=== PATIENT | female | born 1960 | race Caucasian/White ===

== ENCOUNTER 2019-07-23 07:20 | Day surgery (SDC) ==
--- NOTE | 2019-07-17 08:20 | EKG Report ---
Test Performed on : 07/17/2019 08:13:12 AM Test Reason : PAT Blood Pressure : / mmHG Vent. Rate : 073 BPM Atrial Rate : 073 BPM P-R Int : 158 ms QRS Dur : 090 ms QT Int : 382 ms P-R-T Axes : 065 064 080 degrees QTc Int : 420 ms Normal sinus rhythm. Normal ECG When compared with ECG of 27-AUG-2018 09:04, Left posterior fascicular block is no longer present Nonspecific T wave abnormality, worse in Lateral leads Unconfirmed Result
[2019-07-17 08:40] LABS: URINE SOURCE CLEAN CATCH
[2019-07-17 08:48] LABS: BASO# 0.02 X1000 (0.0-0.2); BASO% 0.4 % (0.0-0.8); EOS# 0.13 X1000 (0.0-0.7); EOS% 2.4 % (0.0-10.0); HEMATOCRIT 34.4 % (37.0-47.0); HEMOGLOBIN 10.4 g/dL (12.0-16.0); IMM GRAN# 0.02 X1000 (0.0-0.04); IMM GRAN% 0.4 % (0.0-0.5); LYMPH# 1.89 X1000 (1.2-3.4); LYMPH% 34.5 % (20.5-51.1); MCH 29.6 PG (27-31); MCHC 30.2 g/dL (33-37); MONO# 0.71 X1000 (0.11-0.59); MPV 9.7 FL (7.4-10.4); NEUT# 2.71 X1000 (1.4-6.5); NEUT% 49.3 % (42.2-75.2); PLT 329 X1000 (130-400); RBC 3.51 XMIL (4.2-5.4); RDW 13.2 % (11.5-14.5); WBC 5.48 X1000 (4.8-10.8)
[2019-07-17 08:49] LABS: BILIRUBIN URINE NEGATIVE (NEGATIVE); BLOOD URINE NEGATIVE (NEGATIVE); COLOR YELLOW; GLUCOSE URINE NEGATIVE (NEGATIVE); KETONE URINE NEGATIVE (NEGATIVE); LEUKOCYTES URINE SMALL (NEGATIVE); NITRITE URINE NEGATIVE (NEGATIVE); PH URINE 5.5; PROTEIN URINE NEGATIVE (NEGATIVE); SP GRAVITY URINE 1.019; TURBIDITY URINE CLEAR (CLEAR); UR EPITHELIAL CELLS <10 /HPF (<10); URINE BACTERIA 4+ /HPF; URINE RBC <10 /HPF (<10); UROBILINOGEN URINE NORMAL (NORMAL)
[2019-07-17 08:58] LABS: HEMOGLOBIN A1C 5.2 % (4.8-6.0)
[2019-07-17 08:59] LABS: INR 0.97
[2019-07-17 09:00] LABS: PTT 27.4 Seconds (22.3-41.8)
[2019-07-17 09:12] LABS: AGAP 7; BUN 26 mg/dL (8-22); CALCIUM 8.9 mg/dL (8.8-10.2); CHLORIDE 101 mmol/L (98-107); COSMO 277; CREATININE 0.8 mg/dL (0.5-0.9); ESTIMATED GFR > 60; GLUCOSE 111 mg/dL (70-104); POTASSIUM 4.4 mmol/L (3.5-5.1); SODIUM 136 mmol/L (136-145); TCO2 28 mmol/L (25-35)
[2019-07-23] MEDS: LR 1,000 ML ONE ×2 (07:45→08:00)
[2019-07-23] MEDS ORDERED: VERSED ONE (07:55)
[2019-07-23] MEDS ORDERED: FENTANYL ONE (07:55)
[2019-07-23] MEDS ORDERED: XYLOCAINE-MPF 2% ONE (07:56)
[2019-07-23] MEDS ORDERED: ZOFRAN ONE (07:56)
[2019-07-23] MEDS ORDERED: DECADRON ONE ×2 (07:56)
[2019-07-23] MEDS ORDERED: ROBINUL ONE (07:56)
[2019-07-23] MEDS ORDERED: DIPRIVAN 1% ONE ×2 (07:56→08:08)
[2019-07-23] MEDS ORDERED: OFIRMEV 1000 MG/ISOTONIC SOLN 1,000 MG/100 ML BOTTLE ONE (07:57)
[2019-07-23] MEDS ORDERED: COLACE ONE (07:58)
[2019-07-23] MEDS ORDERED: CELEBREX ONE (07:58)
[2019-07-23] MEDS ORDERED: REGLAN ONE (07:58)
[2019-07-23] MEDS ORDERED: LYRICA ONE (07:58)
[2019-07-23] MEDS ORDERED: PEPCID ONE (07:58)
[2019-07-23] MEDS ORDERED: KEFZOL 1 GM/D5W 2 GM/100 ML IVPB ONE (07:59)
[2019-07-23] MEDS ORDERED: DURAMORPH ONE (08:00)
[2019-07-23] MEDS ORDERED: VANCOMYCIN ONE (08:00)
[2019-07-23] MEDS ORDERED: MARCAINE 0.25% PF ONE (08:00)
[2019-07-23] MEDS ORDERED: TORADOL ONE (08:00)
[2019-07-23] MEDS ORDERED: SODIUM CHLORIDE 0.9% ONE (08:01)
[2019-07-23] MEDS ORDERED: EXPAREL 1.3% ONE (08:01)
[2019-07-23] MEDS ORDERED: VALIUM ONE (08:33)
[2019-07-23] MEDS ORDERED: KETAMINE ONE (08:36)
[2019-07-23] MEDS ORDERED: MARCAINE 0.5% PF ONE (08:48)
[2019-07-23] MEDS: CYKLOKAPRON 1,000 MG/NS 2,000 MG/200 ML IVPB ONE ×2 (09:05→09:50)
[2019-07-23] MEDS ORDERED: DILAUDID ONE (09:58)
[2019-07-23 10:49] LABS: URINE SOURCE CATH
[2019-07-23] MEDS ORDERED: NS 1,000 ML ONE (10:49)
--- NOTE | 2019-07-23 11:02 | Diag Imaging Result Doc PS360 ---
EXAM: KNEE 1-2 VIEWS-RIGHT 07/23/2019 HISTORY: Right total Knee TECHNIQUE: Portable two views COMMENT: There is a total knee arthroplasty. There is no evidence of acute bony abnormality. IMPRESSION: Postsurgical changes. Electronically signed by Scot Acevedo 07/23/2019 10:59 AM
[2019-07-23 11:03] LABS: BILIRUBIN URINE NEGATIVE (NEGATIVE); BLOOD URINE NEGATIVE (NEGATIVE); COLOR YELLOW; GLUCOSE URINE NEGATIVE (NEGATIVE); KETONE URINE NEGATIVE (NEGATIVE); LEUKOCYTES URINE NEGATIVE (NEGATIVE); NITRITE URINE NEGATIVE (NEGATIVE); PROTEIN URINE NEGATIVE (NEGATIVE); SP GRAVITY URINE 1.016; TURBIDITY URINE CLEAR (CLEAR); UROBILINOGEN URINE NORMAL (NORMAL)
[2019-07-23 11:04] LABS: UR EPITHELIAL CELLS <10 /HPF (<10); URINE BACTERIA NEGATIVE /HPF; URINE RBC <10 /HPF (<10); URINE WBC <10 /HPF (<10)
[2019-07-23] MEDS ORDERED: MORPHINE IV PRN ×3 (11:15)
[2019-07-23] MEDS ORDERED: NS 1,000 ML IV SCH (11:15)
[2019-07-23] MEDS ORDERED: ZOFRAN IV PRN (11:15)
[2019-07-23] MEDS ORDERED: ZOFRAN ODT PO PRN (11:15)
[2019-07-23] MEDS: ULTRAM PO SCH ×2 (11:31→17:03)
[2019-07-23] MEDS: TYLENOL PO SCH ×2 (11:31→17:03)
--- NOTE | 2019-07-23 11:32 | OPERATIVE NOTE ---
PROCEDURE DATE: 07/23/2019 PREOPERATIVE DIAGNOSIS: Degenerative joint disease, right knee. POSTOPERATIVE DIAGNOSIS: Degenerative joint disease, right knee. PROCEDURE PERFORMED: Right total knee replacement. SURGEON: Jm Parra MD. SPLICING TECHNICIAN: MARILIN Natarajan. Mr. Paz was necessary for proper retraction, manipulation, and exposure of the case. ANESTHESIA: Spinal. COMPLICATIONS: None. PROCEDURE IN DETAIL: This 59-year-old female presents for right knee replacement. Risks, benefits, and no guarantees were discussed, and she is willing to proceed. She was taken to the operating room and satisfactory anesthesia obtained. The right leg was prepped and draped in the usual sterile fashion. A time-out was taken to confirm operative site, procedure, and patient. The leg was then wrapped with an Esmarch and tourniquet inflated to 300 mmHg. A midline incision was made over the front of the knee, followed by a quad tendon sparing arthrotomy. The patella was everted and resurfaced with freehand technique and subluxed laterally. With the knee flexed, an intramedullary hole was made in the distal femur and intramedullary guide secured in 5 degrees of valgus. Distal femoral resection was made at 10 mm off the end and the femur sized to a [employer] size 5 femoral implant. The four-in-one finishing block was secured, and the anterior, posterior, and chamfer cuts sequentially made. Any osteophytes were debrided about the femur. The knee was flexed and a PCL retractor placed behind the tibia to protect the PCL and neurovascular bundle. The tibial cutting block was secured and the tibial resection made. The flexion-extension gap was slightly tight. An additional 2 mm was taken off the tibia with good soft tissue balance with a 5 mm spacer block. The tibia was sized to a size 5 tibial tray. Trial reduction was performed with a size 5 tibial tray, a size 5 femoral component, and a 5 mm thick CR retaining rotating platform polyethylene trial. Good range of motion and stability were noted. Any osteophytes were debrided about the tibia and femur. The patella was sized to a 35 medialized dome patella. The drill holes were placed for the patella and femoral implants, and the trial components removed. The bony surfaces were thoroughly irrigated with pulsatile lavage. Cement with a gram of vancomycin was utilized to cement a size 5 rotating platform tibial tray, a size 5 right narrow cruciate retaining femoral component, and a 35 medialized dome patella. While the cement cured, the joint capsules injected with Exparel for pain management and a Hemovac drain placed. After curing the cement, a size 5 rotating platform CR poly was inserted in the tibial tray and the knee reduced. Final range of motion was 0 to 130 degrees with midline patellar tracking. The arthrotomy was copiously irrigated and closed over the drain with #1 Vicryl in the arthrotomy, 2-0 Vicryl in the subcutaneous, and skin angela on the skin edges. Sterile dressings completed the closure. The patient was recovered from anesthesia and transferred to the recovery room in stable condition. No intraoperative complications were noted. Instrument count and sponge count were correct at the time of closure. cc: Jm Parra MD
[2019-07-23] MEDS: BUSPAR PO SCH ×3 (16:24→21:48)
[2019-07-23] MEDS: ZYPREXA PO SCH ×3 (16:24→21:54)
[2019-07-23] MEDS: REMERON PO SCH ×3 (16:25→21:46)
[2019-07-23] MEDS: ROBAXIN PO SCH ×3 (16:25→21:46)
[2019-07-23] MEDS: KEFZOL 2 GM/D5W 2 GM/50 ML IVPB IV SCH (17:02)
[2019-07-23] MEDS: OXY IR PO PRN ×2 (18:10→21:50)
--- NOTE | 2019-07-23 20:11 | ORTHOPAEDICS PROGRESS NOTE ---
DATE: 07/23/2019 SUBJECTIVE: Ms. Humphrey is seen status post total knee replacement. At the present time, she is afebrile with stable vital signs. Her bandage is clean and dry. She appears to be motor and sensory intact. She is comfortable the present time. We will plan on discharging her home when she is mobilized with therapy. She is stable the present time. cc: Jm Parra MD
[2019-07-23] MEDS ORDERED: PRAVACHOL PO SCH (21:00)
[2019-07-23] MEDS ORDERED: SEROQUEL PO SCH (21:00)
[2019-07-23] MEDS ORDERED: RESTORIL PO SCH (21:00)
[2019-07-23] MEDS ORDERED: LAMICTAL PO SCH (21:00)
[2019-07-23] MEDS ORDERED: COLACE PO SCH (21:00)
[2019-07-23] MEDS: CELEBREX PO SCH (21:45)
[2019-07-23] MEDS: PERIDEX MT SCH (21:45)
[2019-07-23] MEDS: COLACE PO SCH (21:47)
[2019-07-23] MEDS: COREG PO SCH (21:48)
[2019-07-24] MEDS: KEFZOL 2 GM/D5W 2 GM/50 ML IVPB IV SCH (01:14)
[2019-07-24] MEDS: OXY IR PO PRN ×3 (05:13→11:22)
[2019-07-24] MEDS: TYLENOL PO SCH ×3 (05:14→06:55)
[2019-07-24] MEDS: PROTONIX PO SCH ×2 (05:14→06:56)
[2019-07-24] MEDS: ULTRAM PO SCH ×2 (06:41→06:56)
[2019-07-24 07:04] LABS: HEMATOCRIT 28.1 % (37.0-47.0); HEMOGLOBIN 8.4 g/dL (12.0-16.0)
[2019-07-24 07:12] LABS: AGAP 15; BUN 18 mg/dL (8-22); CHLORIDE 105 mmol/L (98-107); COSMO 281; CREATININE 0.7 mg/dL (0.5-0.9); ESTIMATED GFR > 60; GLUCOSE 135 mg/dL (70-104); POTASSIUM 4.1 mmol/L (3.5-5.1); SODIUM 139 mmol/L (136-145); TCO2 19 mmol/L (25-35)
[2019-07-24] MEDS: BUSPAR PO SCH (08:03)
[2019-07-24] MEDS: ZYPREXA PO SCH (08:04)
[2019-07-24] MEDS: CELEBREX PO SCH (08:05)
[2019-07-24] MEDS: ROBAXIN PO SCH (08:05)
[2019-07-24] MEDS: COLACE PO SCH (08:05)
[2019-07-24] MEDS: REMERON PO SCH (08:07)
[2019-07-24] MEDS: PERIDEX MT SCH (08:08)
[2019-07-24] MEDS: COREG PO SCH (08:17)
[2019-07-24] MEDS ORDERED: ASPIRIN PO SCH (09:00)
[2019-07-24] MEDS ORDERED: THERA M PLUS PO SCH (09:00)
[2019-07-24] MEDS ORDERED: PATIENT'S OWN MED SL SCH (09:00)
[2019-07-24] MEDS ORDERED: CALTRATE 600 + D PO SCH (09:00)
[2019-07-24] MEDS ORDERED: LAMICTAL PO SCH (09:00)
[2019-07-24] MEDS ORDERED: PRINIVIL PO SCH (09:00)
[2019-07-24] MEDS ORDERED: VITAMIN E PO SCH (09:00)
[2019-07-24] MEDS ORDERED: PRISTIQ ER PO SCH (09:00)
--- NOTE | 2019-07-24 10:40 | ORTHOPAEDICS PROGRESS NOTE ---
DATE: 07/24/2019 Ms. Humphrey is seen status post knee replacement. At the present time, she is afebrile with stable vital signs. Her bandages are all clean and dry. She is motor and sensory intact. We will plan on mobilizing her today and discharging her home with home therapy. She will follow up with us in roughly 12 days. She can continue her regular medicines and use [place] 10 as needed for pain, Bactrim for antibacterial prophylaxis, and aspirin 325 a day for DVT prophylaxis. She is to return in the interim for any worsening signs or symptoms. cc: Jm Parra MD
[2019-07-24 11:34] VITALS: BP 105/47
[2019-07-27] MEDS ORDERED: FOSAMAX PO SCH (07:00)
[2019-08-23] MEDS ORDERED: CYANOCOBALAMIN IM SCH (09:00)
== END 2019-07-24 12:54 | disposition home or self-care (01) ==
LOC: PAT 07:20 → 4N 07:20 → OPS 07:20
PROVIDERS: ATTEND Orthopaedic Surgery Adult Reconstructive Orthopaedic Surgery